=== PATIENT | female | born 1985 | race Caucasian/White ===

== ENCOUNTER 2019-11-22 09:56 | Observation (INO) | payer OTHER, SELFPAY ==
[2019-11-22] VITALS (11 sets, daily range): BP systolic 125–142; BP diastolic 67–98; PULSE 57–85; RESP 15–26; TEMP 36.6–36.7; O2SAT 99–100; BMI 24.1; BMI 24.5
--- NOTE | 2019-11-22 10:13 | EKG12_ITS ---
Test Reason : CP/SOB Blood Pressure : / mmHG Vent. Rate : 069 BPM Atrial Rate : 069 BPM P-R Int : 162 ms QRS Dur : 084 ms QT Int : 382 ms P-R-T Axes : 067 084 026 degrees QTc Int : 409 ms Normal sinus rhythm Nonspecific T wave abnormality Abnormal ECG Confirmed by KIRAN LOZANO ([id number]), health editor KAYLA ARRIAGA ([id number]) on 11/25/2019 9:44:41 AM Referred By: REG/DENISSE Confirmed By:KIRAN LOZANO
--- NOTE | 2019-11-22 10:14 | CT_ITS ---
STUDY: CTA CHEST REASON FOR EXAM: Female, 34 years old. PT STATED SHORT OF BREATH FOR SEVERAL WEEKS RADIATION DOSAGE (If Supplied By Facility): CTDIvol = ( 6.87 ) mGy, DLP = ( 206.74 ) mGycm TECHNIQUE: The examination was performed with the intravenous administration of 75ML ISOVUE 370. Post-processing of the angiographic images was performed, with multiplanar reformation and 3D reconstruction. Individualized dose optimization techniques were used for this CT. COMPARISON: None. FINDINGS: There are nonocclusive intraluminal filling defects in branches of the right lower lobe pulmonary artery in keeping with the pulmonary emboli. Normal thoracic aorta and visualized great vessels. There is no demonstrated aortic dissection. Normal heart and pericardium. Normal mediastinum. Normal hilar regions. Normal visualized trachea and bronchi. The lungs are well expanded. Normal pulmonary parenchyma. Normal pleura. Normal chest wall structures. Normal osseous structures. Normal visualized upper abdomen. CT/CTA Chest W/WO Contrast IMPRESSION: Multiple nonocclusive pulmonary emboli in branches of the right lower lobe pulmonary artery. Electronically Signed: Fransisco Kendall, at 12:00 EST , Service support ,
--- NOTE | 2019-11-22 10:25 | NURSING ---
NO OLD EKGS
[2019-11-22] MEDS: Ipratropium/Albuterol Sulfate 3 ML AMPUL.NEB INHALATION (10:43)
[2019-11-22 10:48] LABS: Absolute Lymphocyte Count 1.84 X10^3/uL (0.83-4.51); Absolute Neutrophil Count 5.7 X10^3/uL (2.0-7.7); Basophil# 0.03 X10^3/uL; Basophil% 0.4 % (0-1); Eosinophil# 0.06 X10^3/uL; Eosinophils% 0.8 % (0-5); Hematocrit 46.1 % (37-47); Hemoglobin 15.5 g/dL (12.0-15.0); Lymphocyte # 1.84 X10^3/ul (4.0); Lymphocyte % 23.1 % (19-41); Mean Corp Hgb Conc 33.6 g/dL (32-36); Mean Corpuscular Hgb 31.1 pg (27.0-32.0); Mean Corpuscular Volume 92.4 fL (81-99); Mean Platelet Vol. 9.8 fl (6.2-12.0); Monocyte# 0.28 X10^3/uL; Monocyte% 3.5 % (0-10); NRBC Flagged by Analyzer 0 % (0-5); Neutrophil # 5.73 X10^3/uL (2.7-7.7); Neutrophil % 71.8 % (47-70); Platelet Count 270 K/mm3 (150-450); RBC Distribution Width CV 11.9 % (11.6-14.6); RBC Distribution Width SD 40.3 fl (35.1-43.9); Red Blood Count 4.99 M/mm3 (4.2-5.4)
--- NOTE | 2019-11-22 10:48 | ED.DCSUM_ITS ---
- ER Visit Summary Date of Service: 11/22/19 Chief Complaint: [Shortness of breath] History of Present Illness: The patient is a 34 F [presents to the ER with complaint shortness of breath for the last 4 days. Patient states that she has been sick for a week and a half. Patient initially started with cough and was seen and admitted at [facility] 4 days ago for the dyspnea. Patient was told her chest x-ray looked clear and she was checked for influenza which was negative. Patient was seen in urgent care 8 days ago and started on Zithromax and prednisone as well as pro-air for suspected bronchitis. She denies recent travel or surgery although she does have family history of DVT and that her sister and brother have had it. She herself is never had history of blood clot. Patient was seen for her follow-up visit today by nurse practitioner and it was noted that with ambulation her pulse ox dropped to 85% on room air and she was referred to the emergency department. She denies any chest pain. She does feel lightheaded with standing and walking. Patient not on any oral contraceptive or hormone replacement. She has had prior hysterectomy.] Physical Examination: [HEENT-PERRLA, EOMI. Cranial nerves II through XII grossly intact. TMs clear. Mucous membranes moist. No adenopathy. Cardiovascular-regular rate and rhythm without murmur or ectopy Lungs-good aeration bilaterally. Patient does have some very fine end expiratory wheezes noted. No accessory muscle use or retractions. Abdomen-normoactive bowel sounds, soft, nontender, no rebound or rigidity, no peritoneal signs. Extremities-intact ?4, normal range of motion, normal pulses, atraumatic] Test Results: [EKG obtained on arrival showed a sinus rhythm with a ventricular rate of 69 bpm with no acute ST segment changes noted.] CBC with differential obtained showed a white count that was normal. Chemistries unremarkable other than a slightly depressed potassium of 3.0. BUN was 14 and creatinine 1.16. Troponin was less than 0.15. CT of the chest showed right lower lobe PEs that are nonocclusive. Emergency Department Course and Treatment: [Patient had clotting profile ordered. Patient was started on Eliquis after discussing with hospitalist.] Treatment Plan: [Admit] Disposition: [Admit] Impression: [Pulmonary emboli Hypoxemia Dyspnea] This note was generated with Dragon dictation software. It may contain incorrect words, spelling, and punctuation that were not noted in review of the chart prior to signing ED Disposition - Plan for ED Patient: Referrals: Katie Watson MD [Primary Care Provider] -
[2019-11-22 11:04] LABS: Anion Gap 9 (5-15); BUN 14 mg/dL (7-18); BUN/Creat Ratio 12.1 RATIO (10-20); Calcium,Total 9.7 mg/dL (8.5-10.1); Chloride 107 mmol/L (98-107); Creatinine, Serum 1.16 mg/dL (0.55-1.02); EST Glomerular Filtration Rate 56 mL/min (>60); Est Glom Filt Rate - Afr Amer 68 mL/min (>60); Estimated Creatinine Clearance 67.63 ml/min; Glucose 103 mg/dL (74-106); Sodium Level 141 mmol/L (136-145)
[2019-11-22] MEDS: 0.9% Normal Saline 1,000 ML 150 ML IV (11:11)
[2019-11-22] MEDS: APIXABAN 5 MG TABLET 10 MG PO ×2 (12:38→22:10)
--- NOTE | 2019-11-22 12:40 | HP.PCM_ITS ---
History of Present Illness Date of Admission: 11/22/19 Chief Complaint: Shortness of breath The patient is a 34 year old F with no significant past medical history presents with shortness of breath. She states that it started a couple of weeks ago and she had been seen at an urgent care where she was started on an albuterol inhaler as well as multiple antibiotics but that did not help. She then went to [facility] where she was admitted and discharged 3 or 4 days later and she was seeing her doctor this morning for post hospital follow-up and had hypoxia with ambulation and therefore she was sent to the ER. She had a CT scan of her chest which demonstrated multiple nonocclusive PEs in the right lower lobe. She does have a family history of DVTs in her brother and sister. She is a smoker but she is not on any control she is status post hysterectomy and she is fairly active so she does not have any signs of provocation other than the smoking. In the ER her lab work was unremarkable, she had a normal heart rate but was little bit tachypneic. She is 100% on room air while sitting. Past Medical History Allergies No Known Allergies Allergy (Verified 11/22/19 09:56) Home Medications: Ambulatory Orders Medication Instructions Recorded NK 11/22/19 Surgical History: hysterectomy Smoking Status: Current every day smoker Tobacco Use: Cigarettes Alcohol: None Drugs: None - *Family History Maternal History Items: Stroke Paternal History Items: Heart Disease Sibling History Items: Clotting Disorder Review of Systems Constitutional: Denies: Chills, Fever, Weight Change HEENT: Denies: Head Aches, Sinus Congestion, Sinus Drainage Cardiovascular: Reports: Chest Pain. Denies: Palpitations Respiratory: Reports: Pleuritic Pain, Shortness of Breath. Denies: Cough, Shortness of breath at rest, Sputum production Gastrointestinal: Denies: Abdominal Pain, Nausea, Vomiting Genitourinary: Denies: Dysuria Musculoskeletal: Denies: Joint Pain, Joint Tenderness Skin: Denies: Rash, Wounds Neurological: Denies: Numbness, Tingling, Focal weakness Psychiatric: Denies: Anxiety, Depression Hematologic/ Lymphatic: Denies: Easy Bruising, Easy Bleeding VTE Information - Inpt Only VTE Present on Admission: No - Physical Exam Vitals/I&O's: Vital Signs Temp Pulse Resp BP Pulse Ox 98.0 F 69 26 H 135/84 H 100 11/22/19 09:57 11/22/19 10:44 11/22/19 10:44 11/22/19 09:57 11/22/19 10:44 Oxygen Delivery Method Room Air Weight: 159 lb Body Mass Index (BMI) 24.1 General: Alert, Oriented x3, Cooperative, No apparent distress HEENT: Atraumatic, PERRLA, EOMI, Normocephalic Oral: Moist Mucosa Neck: Supple, No JVD Lungs: Clear to auscultation, Normal air movement, No rhonchi, No wheeze, No rales, Tachypneic Cardiovascular: Regular rate, Regular Rhythm, Normal S1, Normal S2, No murmurs Abdomen: Soft, Non Tender, Non-Distended, No Hepato-splenomegaly Extremities: No edema, Capillary Refill Less than 3 Seconds Skin: No rashes, No breakdown Neurological: Neuro grossly intact, Sensory exam intact to light touch and pain Psych/Mental Status: Normal Affect, Appropriate Laboratory Results 11/22/19 10:20: WBC 8.0, RBC 4.99, Hgb 15.5 H, Hct 46.1, MCV 92.4, MCH 31.1, MCHC 33.6, RDW Std Deviation 40.3, RDW Coeff of Amanda 11.9, Plt Count 270, MPV 9.8, Immature Gran % (Auto) 0.400, Neut % (Auto) 71.8 H, Lymph % (Auto) 23.1, [place] % (Auto) 3.5, Eos % (Auto) 0.8, Baso % (Auto) 0.4, Absolute Neuts (auto) 5.7, Absolute Lymphs (auto) 1.84, Nucleated RBC % 0 11/22/19 10:20: Sodium 141, Potassium 3.0 L, Chloride 107, Carbon Dioxide 25.0, Anion Gap 9, BUN 14, Creatinine 1.16 H, Estim Creat Clear Calc 67.63, Est GFR (MDRD) Af Amer 68, Est GFR (MDRD) Non-Af 56 L, BUN/Creatinine Ratio 12.1, Glucose 103, Calcium 9.7, Troponin I < 0.015 Current Medications Apixaban (Eliquis) 10 mg PO BID YULI Last Admin: 11/22/19 12:38 Dose: 10 mg Documented by: Sodium Chloride () 1,000 mls @ 150 mls/hr IV .[id number] [facility] Last Admin: 11/22/19 11:11 Dose: 150 mls/hr Documented by: Assessment/Plan 1. Unprovoked PE -He has no tachycardia there is no need for an echocardiogram at this time -We will continue with Eliquis 10 mg p.o. twice daily for a week and then transition to 5 mg p.o. twice daily -We will have her follow-up with a medicine man as an outpatient and at that time they can obtain any genetic information, she does have a brother and a sister who both have DVTs -As she is high risk for recurrence given the likely genetic component and the fact that this was unprovoked, she is a lifelong anticoagulation candidate -Prior to discharge we will obtain an ambulatory pulse ox 2. Tobacco abuse -Advised cessation DVT: Eliquis Code Visit OBSV E&M: 22246 Initial observation care L2
--- NOTE | 2019-11-22 12:55 | NURSING ---
Fallon DUNHAM PE
[2019-11-23 02:46] VITALS: PULSE 62
[2019-11-23 03:30] VITALS: BP 123/74; PULSE 58; RESP 16; TEMP 36.6; O2SAT 98
[2019-11-23 05:09] LABS: Anion Gap 3 (5-15); BUN 9 mg/dL (7-18); BUN/Creat Ratio 9.7 RATIO (10-20); Calcium,Total 8.4 mg/dL (8.5-10.1); Chloride 111 mmol/L (98-107); Creatinine, Serum 0.93 mg/dL (0.55-1.02); EST Glomerular Filtration Rate 72 mL/min (>60); Est Glom Filt Rate - Afr Amer 88 mL/min (>60); Estimated Creatinine Clearance 84.36 ml/min; Glucose 78 mg/dL (74-106); Magnesium 2.3 mg/dL (1.6-2.6); Phosphorus 3.7 mg/dL (2.5-4.9); Potassium 4.2 mmol/L (3.5-5.1); Sodium Level 141 mmol/L (136-145)
[2019-11-23 07:00] VITALS: PULSE 61
[2019-11-23 09:30] VITALS: BP 111/74; PULSE 78; RESP 18; TEMP 36.5; O2SAT 100
--- NOTE | 2019-11-23 09:36 | CASEMGMT ---
Pt to be sent home on Eliquis at discharge and med e-scribed to [facility] retail pharmacy previously. Call to Samy in [facility] pharmacy and she states that pt has no co-pay for med at this time. Pt awaiting discharge. Gio GARCIA CM
--- NOTE | 2019-11-23 10:37 | DCINST_ITS ---
You will use the following diet at home:: Regular Your food should be the consistency of: Regular Your liquids should be the consistency of: Regular/Thin Discharge Activity: Return to Normal Activity Call your doctor if you observe: Fever of 101 or Higher, Shortness of breath, Dizziness, Fainting spells, Swelling in the ankles, Chest pain, Increased palpitations (irregular heartbeat) Allergies/Adverse Reactions: Allergies No Known Allergies Allergy (Verified 11/22/19 09:56) Medications to take at Discharge Apixaban [Eliquis] 10 mg PO BID #90 tab 11/23/19 The following prescriptions were given: Apixaban [Eliquis] 10 mg PO BID #90 tab Transmission Status: Received by [facility] Primary Care Physician: Katie Watson MD [Primary Care Provider] - Please follow up with your Primary Care Physician in: 3-5 days Test Results: Test results from this visit will be discussed in further detail at your follow- up appointment, if applicable. Please Follow Up With: Shahana Oneal MD When: 3-4 weeks
[2019-11-23 11:00] VITALS: PULSE 86
--- NOTE | 2019-11-23 11:01 | PHA.DC.MC ---
Pharmacy Service has performed discharge medication reconciliation and counseling for this patient. 1. APIXABAN 10MG PO BID X 6 MORE DAYS THEN 5MG PO BID The patient's discharge medication list was reviewed for discrepancies and discrepancies were resolved. Home Medications Apixaban [Eliquis] 10 mg PO BID #90 tab 11/23/19 The patient was counseled on the following discharge medications and changes in medications for homegoing were reviewed. The Reason for Use, instructions for use, and potential side effects were reviewed for all new medications. The patient's questions regarding all of their medications were answered. The patient was able to verbally demonstrate an understanding of their discharge medications.
--- NOTE | 2019-11-23 11:20 | PCM.DC.SUM ---
Discharge Date and Diagnosis Date of Admission: 11/22/19 Date of Discharge: 11/23/19 Hospital Course and Treatment Imaging Results: CTA Chest: IMPRESSION: Multiple nonocclusive pulmonary emboli in branches of the right lower lobe pulmonary artery. Consults: None Operations: None Procedures: None Summary of Care Provided: Per HPI: The patient is a 34 year old F with no significant past medical history presents with shortness of breath. She states that it started a couple of weeks ago and she had been seen at an urgent care where she was started on an albuterol inhaler as well as multiple antibiotics but that did not help. She then went to [facility] where she was admitted and discharged 3 or 4 days later and she was seeing her doctor this morning for post hospital follow-up and had hypoxia with ambulation and therefore she was sent to the ER. She had a CT scan of her chest which demonstrated multiple nonocclusive PEs in the right lower lobe. She does have a family history of DVTs in her brother and sister. She is a smoker but she is not on any control she is status post hysterectomy and she is fairly active so she does not have any signs of provocation other than the smoking. In the ER her lab work was unremarkable, she had a normal heart rate but was little bit tachypneic. She is 100% on room air while sitting. Hospital Course: 1. Right lower lobe nonocclusive unprovoked [id number] female with no significant past medical history presents with shortness of breath that was found to be due to a right lower lobe PE. She was not hypoxic on room air at rest, she was not tachycardic she was slightly tachypneic. She was started on Eliquis which she has been tolerating very well and today she says that she feels much better and would like to go home. She still does have a slight cough as well as postnasal drip indicating an upper respiratory infection. She has an albuterol inhaler at home from a previous visit to an urgent care, I recommended Flonase on an outpatient basis to help dry up her nasal mucosa. She is to continue Eliquis 10 mg p.o. twice daily for 7 days and then transition to 5 mg p.o. twice daily. She will need to follow-up with a student success counselor on an outpatient basis for follow-up however given her family history with her both her brother and sister having DVTs there is likely a genetic component and therefore given the high risk of recurrence as well as the unprovoked nature of this PE she is a candidate for lifelong anticoagulation. I discussed the plan of discharge with her and she expressed understanding with the risks and benefits of going home and is in agreement. - Physical Exam Vitals/I&O's: Vital Signs Temp Pulse Resp BP Pulse Ox 97.7 F L 86 18 111/74 100 11/23/19 09:30 11/23/19 11:00 11/23/19 09:30 11/23/19 09:30 11/23/19 09:30 Oxygen Flow Rate (L/min) 2 Oxygen Delivery Method Room Air Weight: 161 lb 6.054 oz Body Mass Index (BMI) 24.5 Intake and Output for Last 24 Hours 11/21/19 11/22/19 11/23/19 23:59 23:59 23:59 Intake Total 2170 / 2170 100 / 100 Balance 2170 / 2170 100 / 100 General: Alert, Oriented x3, Cooperative, No apparent distress HEENT: Atraumatic, PERRLA, EOMI, Normocephalic Oral: Moist Mucosa Neck: Supple, No JVD Lungs: Clear to auscultation, Normal air movement, No rhonchi, No wheeze, No rales, Tachypneic Cardiovascular: Regular rate, Regular Rhythm, Normal S1, Normal S2, No murmurs Abdomen: Soft, Non Tender, Non-Distended, No Hepato-splenomegaly Extremities: No edema, Capillary Refill Less than 3 Seconds Skin: No rashes, No breakdown Neurological: Neuro grossly intact, Sensory exam intact to light touch and pain Psych/Mental Status: Normal Affect, Appropriate Laboratory Results 11/23/19 04:02: Sodium 141, Potassium 4.2, Chloride 111 H, Carbon Dioxide 27.0, Anion Gap 3 L, BUN 9, Creatinine 0.93, Estim Creat Clear Calc 84.36, Est GFR (MDRD) Af Amer 88, Est GFR (MDRD) Non-Af 72, BUN/Creatinine Ratio 9.7 L, Glucose 78, Calcium 8.4 L, Phosphorus 3.7, Magnesium 2.3 Current Medications Acetaminophen (Tylenol) 650 mg PO Q6H PRN PRN PRN Reason: Pain Score 1-10/Temp > 100.7 F Apixaban (Eliquis) 10 mg PO BID YULI Last Admin: 11/22/19 22:10 Dose: 10 mg Documented by: Ondansetron HCl (Zofran) 4 mg IV Q8H PRN PRN PRN Reason: NAUSEA/VOMITING Sodium Chloride () 10 - 40 ml IV UD PRN PRN Reason: SALINE FLUSH Discharge Activity: Return to Normal Activity Call your doctor if you observe: Fever of 101 or Higher, Shortness of breath, Dizziness, Fainting spells, Swelling in the ankles, Chest pain, Increased palpitations (irregular heartbeat) Home Medications: Medications to take at Discharge Apixaban [Eliquis] 10 mg PO BID #90 tab 11/23/19 Following Prescrptions Were Given to Patient: Apixaban [Eliquis] 10 mg PO BID #90 tab Transmission Status: Received by [facility] Primary Care Physician: Katie Watson MD [Primary Care Provider] - Please follow up with your Primary Care Physician in: 3-5 days Please Follow Up With: Shahana Oneal MD When: 3-4 weeks Disposition: Home Minutes spent on discharge:: 35 Patient Condition:: Stable Medical Necessity - Tobacco Use Smoking Status: Current every day smoker Tobacco Use: Cigarettes Meaningful Use Info Meaningful Use Diagnoses (Choose all that apply): None applicable Code Visit OBSV E&M: 41524 Observation care discharge
[2019-11-23 11:51] VITALS: BP 111/74; PULSE 78; RESP 18; TEMP 36.5; O2SAT 100
[2019-11-23] MEDS: APIXABAN 5 MG TABLET 10 MG PO (11:57)
== END 2019-11-23 10:38 | disposition home or self-care (01) ==
LOC: ED 11:36 → PCU 12:47
PROVIDERS: Admitting Provider Family Medicine; Emergency Provider Emergency Medicine; PCP Internal Medicine; Visit Provider Family Medicine
DX: I26.99 Other pulmonary embolism without acute cor pulmonale (principal); F17.210 Nicotine dependence, cigarettes, uncomplicated
CPT/HCPCS: 36415; 71275; 80048; 83735; 84100; 84484; 85025; 93005; 94640; 96360; 96361; 99218; 99284; 99406; J7030; Q9967; G0378

== ENCOUNTER 2019-12-28 19:19 | Observation (INO) | payer OTHER, SELFPAY ==
[2019-11-22 14:09] VITALS: BMI 24.5
[2019-12-28 19:20] VITALS: BP 162/97; PULSE 98; RESP 15; TEMP 36.8; O2SAT 97; BMI 25.1
--- NOTE | 2019-12-28 19:21 | EKG12_ITS ---
Test Reason : CP Blood Pressure : / mmHG Vent. Rate : 093 BPM Atrial Rate : 093 BPM P-R Int : 158 ms QRS Dur : 078 ms QT Int : 314 ms P-R-T Axes : 055 067 011 degrees QTc Int : 390 ms Normal sinus rhythm Possible Left atrial enlargement Septal infarct , age undetermined Abnormal ECG Confirmed by KAYE KAY, ALIDA ([id number]), editor managing newspaper KAYLA ARRIAGA ([id number]) on 12/30/2019 1:02:15 PM Referred By: JUAN Confirmed By:KAVON RESTREPO MD
--- NOTE | 2019-12-28 19:53 | RAD_ITS ---
STUDY: X-RAY CHEST REASON FOR EXAM: Female, 34 years old. CHEST PAIN TECHNIQUE: Frontal view of the chest COMPARISON: 22 November 2019 FINDINGS: The lungs are clear and expanded. There is no demonstrated pleural abnormality. Normal size heart. Normal mediastinum and yadira. Normal visualized pulmonary arteries. Normal visualized aortic arch and descending thoracic aorta. Normal visualized thoracic spine. Normal visualized ribs, clavicles, and shoulders. There is no demonstrated abnormality of the visualized soft tissue structures of the upper abdomen. RAD/Chest 1 View (Portable) IMPRESSION: Normal x-ray examination of the chest. Electronically Signed: Diana Lozano, at 20:17 EDT Tel , Service support ,
[2019-12-28 20:20] VITALS: BP 138/83; PULSE 87; RESP 24; O2SAT 100
[2019-12-28 20:32] LABS: Absolute Lymphocyte Count 0.73 X10^3/uL (0.83-4.51); Absolute Neutrophil Count 10.3 X10^3/uL (2.0-7.7); Basophil# 0.05 X10^3/uL; Basophil% 0.4 % (0-1); Eosinophil# 0.09 X10^3/uL; Eosinophils% 0.8 % (0-5); Hematocrit 41.3 % (37-47); Hemoglobin 13.7 g/dL (12.0-15.0); Lymphocyte # 0.73 X10^3/ul (4.0); Lymphocyte % 6.2 % (19-41); Mean Corp Hgb Conc 33.2 g/dL (32-36); Mean Corpuscular Hgb 31.7 pg (27.0-32.0); Mean Corpuscular Volume 95.6 fL (81-99); Mean Platelet Vol. 9.8 fl (6.2-12.0); Monocyte# 0.61 X10^3/uL; Monocyte% 5.1 % (0-10); NRBC Flagged by Analyzer 0 % (0-5); Neutrophil # 10.33 X10^3/uL (2.7-7.7); Neutrophil % 87.1 % (47-70); Platelet Count 197 K/mm3 (150-450); RBC Distribution Width SD 42.3 fl (35.1-43.9); Red Blood Count 4.32 M/mm3 (4.2-5.4); White Blood Count 11.9 K/mm3 (4.4-11.0)
--- NOTE | 2019-12-28 20:47 | US_ITS ---
STUDY: VENOUS DOPPLER ULTRASOUND - BILATERAL LOWER EXTREMITIES REASON FOR EXAM: Female, 34 years old. KNOWN PEs SOB CHEST PAIN TECHNIQUE: Ultrasound evaluation of the deep vein system to include nava-scale imaging and compression was performed. Nava-scale imaging and Doppler sonographic evaluation, including duplex spectral analysis and qualitative color flow sonography, was performed. COMPARISON: None. FINDINGS: RIGHT LEG Common Femoral Vein: Normal compression, spontaneity and augmentation. Normal color Doppler. Common Femoral Vein/Greater Saphenous Junction: Normal compression. Femoral Proximal: Normal compression. Femoral Middle: Normal compression, spontaneity and augmentation. Normal color Doppler. Femoral Distal: Normal compression. Popliteal Vein: Normal compression, spontaneity and augmentation. Normal color Doppler. Posterior Tibial Vein: Normal compression. Peroneal Vein: Normal compression. LEFT LEG Common Femoral Vein: Normal compression, spontaneity and augmentation. Normal color Doppler. Common Femoral Vein/Greater Saphenous Junction: Normal compression. Femoral Proximal: Normal compression. Femoral Middle: Normal compression, spontaneity and augmentation. Normal color Doppler. Femoral Distal: Normal compression. Popliteal Vein: Normal compression, spontaneity and augmentation. Normal color Doppler. Posterior Tibial Vein: Normal compression. Peroneal Vein: Normal compression. There is no demonstrated deep venous thrombosis. US/Venous Duplex Imag/Steven Extrem IMPRESSION: Normal venous Doppler ultrasound of the bilateral lower extremities. Electronically Signed: Leonard Bhagat, at 21:48 EDT Tel , Service support ,
[2019-12-28 20:50] LABS: Anion Gap 4 (5-15); BUN 7 mg/dL (7-18); BUN/Creat Ratio 7.1 RATIO (10-20); Calcium,Total 8.8 mg/dL (8.5-10.1); Chloride 106 mmol/L (98-107); Creatinine, Serum 0.99 mg/dL (0.55-1.02); EST Glomerular Filtration Rate 67 mL/min (>60); Est Glom Filt Rate - Afr Amer 81 mL/min (>60); Estimated Creatinine Clearance 79.25 ml/min; Glucose 107 mg/dL (74-106); Potassium 3.6 mmol/L (3.5-5.1); Sodium Level 138 mmol/L (136-145)
[2019-12-28 21:20] VITALS: BP 136/95; PULSE 82; RESP 20; O2SAT 99
[2019-12-28 21:37] VITALS: O2SAT 97
[2019-12-28 22:11] VITALS: BP 137/93; PULSE 78; RESP 20; O2SAT 100
--- NOTE | 2019-12-28 22:35 | CT_ITS ---
STUDY: CTA CHEST REASON FOR EXAM: Female, 34 years old. KNOWN PE - ON ELIQUIS, WOKE UP WITH CP TODAY RADIATION DOSAGE (If Supplied By Facility): CTDIvol = ( 8.96 ) mGy, DLP = ( 279.74 ) mGycm TECHNIQUE: The examination was performed with the intravenous administration of IV 100 ML ISOVUE 370. Post-processing of the angiographic images was performed, with multiplanar reformation and 3D reconstruction. Individualized dose optimization techniques were used for this CT. COMPARISON: Portable chest x-ray 12/28/2019. CTA chest 11/22/2019.. FINDINGS: Normal enhancement of the main pulmonary artery and right and left pulmonary arteries. Normal enhancement of the bilateral peripheral pulmonary arteries. There is no demonstrated pulmonary embolism. Previously nonocclusive filling defects within the right inferior pulmonary artery on previous examinations are not visualized. Normal thoracic aorta and visualized great vessels. There is no demonstrated aortic dissection. Normal heart and pericardium. Normal mediastinum. Normal hilar regions. Normal visualized trachea and bronchi. The lungs are well expanded. Normal pulmonary parenchyma. Normal pleura. Normal chest wall structures. Normal osseous structures. Normal visualized upper abdomen. CT/CTA Chest W/WO Contrast IMPRESSION: Normal CTA chest examination, without a demonstrated pulmonary embolism or arterial dissection. Resolution of previous pulmonary emboli in the right lower lobe. Electronically Signed: Willow Rees MD at 23:19 EDT , Service support ,
--- NOTE | 2019-12-28 23:19 | HP.PCM_ITS ---
Problem List (1) Chest pain Status: Acute Qualifiers: Chest pain type: unspecified Qualified Code(s): R07.9 - Chest pain, unspecified (2) Acute viral syndrome Status: Acute (3) Pulmonary emboli Status: Chronic Qualifiers: Pulmonary embolism type: unspecified Chronicity: chronic Acute cor pulmonale presence: unspecified Qualified Code(s): I27.82 - Chronic pulmonary embolism (4) Tobacco use Status: Chronic History of Present Illness Date of Admission: 12/28/19 Chief Complaint: Dyspnea, chest pain The patient is a 34 y/o F w/ PMHx: Tobacco use, Recent history of RLL PE who presents to the [facility] ED on 12/28/19 with history of recent admission on 11/22/2019 with family with history of DVTs in her brothers and sisters with ongoing tobacco use with ongoing history of dyspnea with CTPA at that time demonstrating multiple nonocclusive pulmonary emboli is in the right lower lobe discharged on Eliquis therapy following evaluation with follow-up outpatient with hematology who now represents to the [facility] ED on 12/28/19 with history of improving initially; however, she notes having awoke on day of ED presentation with sudden onset chest pain, described as a midsternal nonradiating pressure, worse with certain positioning, including laying flat with increased dyspnea although dyspnea worse with exertion with no nausea, emesis or diaphoresis, rated 5-6/10 at its worst and 2/10 when it wanes prompting return to the ED for evaluation. With exertion in the ED her oxygenation desaturated into the mid-80s. Patient denies any recent travel or contact with anyone who is traveled to [place] at 19 endemic areas. 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 Work-up in the ED included T 98.3, heart rate 98, BP 162/97 initially with improvement to 136/95, respiratory rate 24, on her percent room air, CBC with WBC 11.9, hemoglobin 13.7, platelet 197 with left shift, BMP with glucose 107 otherwise unremarkable, troponin less than 0.015, x-ray with no acute cardiopulmonary findings, duplex ultrasound with normal venous Doppler ultrasound bilateral lower extremities, CTPA with resolution of previous pulmonary emboli in the right lower lobe, EKG SR without acute evidence of ischemia. Past Medical History Past Medical History (Chronic Problems): Chronic Problems Pulmonary emboli (Chronic) Tobacco use (Chronic) Allergies No Known Allergies Allergy (Verified 12/28/19 19:19) Home Medications: Ambulatory Orders Medication Instructions Recorded Apixaban [Eliquis] 10 mg PO BID #90 tab 11/23/19 Bupropion HCl [Bupropion HCl Sr] 1 tab PO BID 12/28/19 Surgical History: hysterectomy, - - Hysterectomy, knee arthroscopic surgery. Psychiatric History: No pertinent psych hx [employer] History: endometriosis Lives: Spouse/ Significant Other Smoking Status: Light Smoker (<10/day) - Patient currently down to approximately 5 cigarettes/day Tobacco Use: Cigarettes Alcohol: None Drugs: None - *Family History Maternal History Items: Stroke Paternal History Items: Heart Disease Sibling History Items: Clotting Disorder Review of Systems Constitutional: Reports: Malaise, Weakness, Fatigue. Denies: Chills, Fever, Weight Change HEENT: Denies: Head Aches, Sinus Congestion, Sinus Drainage Cardiovascular: Reports: Chest Pain, Chest Pressure, Chest Tightness. Denies: Light Headedness, Orthopnea, Palpitations, Syncope Respiratory: Reports: Shortness of breath upon exertion. Denies: Cough, Shortness of Breath, Shortness of breath at rest, Sputum production Gastrointestinal: Denies: Abdominal Pain, Nausea, Vomiting Genitourinary: Denies: Dysuria Musculoskeletal: Denies: Joint Pain, Joint Tenderness Skin: Denies: Rash, Wounds Neurological: Denies: Numbness, Tingling, Focal weakness Psychiatric: Denies: Anxiety, Depression, Homicidal Ideations, Suicidal Ideations Hematologic/ Lymphatic: Denies: Easy Bruising, Easy Bleeding VTE Information - Inpt Only VTE Present on Admission: No VTE Mechan Device Prophylaxis: SCD's VTE Pharm Prophylaxis ordered?: Yes Patient Problems: Active and Suspected Problems Chest pain (Acute) Acute viral syndrome (Acute) Subjective: Seated upright in the bed, fatigued appearance, notes ongoing chest discomfort although currently waned. Objective: Physical Examination: General: awake, alert, oriented x 3 and cooperative, seated upright in the ED bed, mildly uncomfortable appearing. Skin: normal color, turgor, no icterus, cyanosis. HEENT: AT/NC, EOMI, PERRLA, mildly dry MM, no carotid bruits or JVD noted. Lungs: CTA bilaterally, moderate effort, moderate decrease BL bases, no rales, ronchi or wheezing. Heart: Mildly tachycardic with regular rhythm; no gallop, rub audible. Abdomen: soft, NTTP, ND, normal BS, no HSM. Extremities: no cyanosis, clubbing, or edema. Neurological: patient awake, alert, oriented x 3; cognitive function appears baseline intact; pupils equally reactive to light and accomodation; cranial nerves II-XII grossly normal, moving all 4 extremities, no focal deficits, strength moderately global decrease secondary to acute presentation. Psychiatric: affect appears fatigued and uncomfortable, no acute evidence of depressive or anxiety feelings. - Physical Exam Vitals/I&O's: Vital Signs Temp Pulse Resp BP Pulse Ox 98.3 F 78 20 H 137/93 H 100 12/28/19 19:20 12/28/19 22:11 12/28/19 22:11 12/28/19 22:11 12/28/19 22:11 Oxygen Delivery Method Room Air Weight: 165 lb 5.547 oz Body Mass Index (BMI) 25.1 Laboratory Results 12/28/19 20:20: WBC 11.9 H, RBC 4.32, Hgb 13.7, Hct 41.3, MCV 95.6, MCH 31.7, MCHC 33.2, RDW Std Deviation 42.3, RDW Coeff of Amanda 12.0, Plt Count 197, MPV 9.8, Immature Gran % (Auto) 0.400, Neut % (Auto) 87.1 H, Lymph % (Auto) 6.2 L, Nolan % (Auto) 5.1, Eos % (Auto) 0.8, Baso % (Auto) 0.4, Absolute Neuts (auto) 10.3 H, Absolute Lymphs (auto) 0.73 L, Nucleated RBC % 0 12/28/19 20:20: Sodium 138, Potassium 3.6, Chloride 106, Carbon Dioxide 28.0, A nion Gap 4 L, BUN 7, Creatinine 0.99, Estim Creat Clear Calc 79.25, Est GFR (MDRD) Af Amer 81, Est GFR (MDRD) Non-Af 67, BUN/Creatinine Ratio 7.1 L, Glucose 107 H, Calcium 8.8, Troponin I < 0.015 Assessment/Plan All Active Problems Chest pain (Acute) Acute viral syndrome (Acute) The patient is a 34 y/o F w/ PMHx: Tobacco use, Recent history of RLL PE 11/22/19 who now re-presents to the [facility] ED on 12/28/19 with sudden onset chest pain, described as a midsternal nonradiating pressure, worse with certain positioning, including laying flat with increased dyspnea although dyspnea worse with exertion. 1. Chest Pain, dyspnea, unclear etiology, possibly pericarditis associated with viral illness as febrile upon ED presentation: EKG in ED sinus rhythm with no acute evidence of ischemia but nonspecific ST-T wave changes, CXR w/ no acute findings, CTPA with no new pulmonary emboli, improvement of the right lower lobe, initial trop normal x1. Will admit to PCU, place on a monitored bed to assure no acute myocardial infarction with serial cardiac enzymes and EKGs, will obtain ESR and CRP as concern for underlying pericarditis, will obtain respiratory viral panel, obtain echocardiogram. Pending these findings may initiate alternate regimen or further evaluation as needed. ASA, NG, morphine. 2. Recent right lower lobe pulmonary embolism with history of frequent DVTs in her siblings: Suspected underlying coagulopathy, strongly encouraged tobacco cessation, continued on Eliquis therapy, repeat CTPA with no new findings and improvement from prior, encouraged continued follow-up with hematology outpatient. 3. Tobacco Abuse: Encouraged cessation, inpatient consultation per RT, NR if desired. 4. DVT prophylaxis: SCDs, continue home Eliquis. OBSV E&M: 48889 Initial observation care L3
[2019-12-28] MEDS: APIXABAN 5 MG TABLET PO (23:44)
[2019-12-28 23:46] VITALS: BP 121/91; PULSE 110; PULSE 96; RESP 18; RESP 27; TEMP 38.4; O2SAT 100; O2SAT 99
[2019-12-29] VITALS (13 sets, daily range): BP systolic 108–124; BP diastolic 65–86; PULSE 68–97; RESP 16–20; TEMP 36.7–37.6; O2SAT 96–100; BMI 25.5; BMI 25.6
--- NOTE | 2019-12-29 00:30 | ED.RN ---
Patient has 3 SIRS upon sending patient to the floor. I discussed this with Dr. Jean Baptiste and he does not believe the patient is SEPTIC. There is not any known source or organ disfunction.
--- NOTE | 2019-12-29 00:33 | ED.VISSUMM ---
- ER Visit Summary Date of Service: 12/29/19 Chief Complaint: Chest pain History of Present Illness: The patient is a [address] Watson. Patient was diagnosed with a PE on the right last month. She has been taking Eliquis. Her last dose was 3 hours ago. She reports that 630 this morning she woke with substernal chest pressure that is been constant all day. 710 currently and at worst. States this seems to be worsened by laying flat and relieved by sitting up. Denies any nausea, vomiting, diaphoresis. She reports that she is lightheaded and this gets worse with standing. She is very short of breath when she ambulates. States this is similar to when she had a PE. Physical Examination: Vitals: Stable. Afebrile. General: Well-nourished and well-developed. Head: Normocephalic atraumatic. Neck: Supple, no lymphadenopathy. No JVD. Nontender. Cardiovascular: Regular rate and rhythm. No murmurs. Respiratory: No respiratory distress. Clear to auscultation bilaterally. Abdominal: Soft, nontender, nondistended, normal bowel sounds. No guarding, rebound, or peritoneal signs. Back: Nontender. Extremities: Nontender, no edema. Skin: Normal color, no rash. Neurologic: Alert and oriented ?3. Cranial nerves II through XII are intact. Normal strength and sensation. Psych: Normal affect. Test Results: EKG is sinus at [address] changes. Troponin is negative. Chem-7 shows a glucose 107. CBC shows white count 11.9 with segs neutrophils 87 lymphocytes of 6. Clinical Impression(s) from Imaging Studies Chest X-Ray 12/28/19 19:53 IMPRESSION: Normal x-ray examination of the chest. Electronically Signed: Diana Lozano, at 20:17 EDT Tel , Service support , Venous Duplex 12/28/19 20:47 IMPRESSION: Normal venous Doppler ultrasound of the bilateral lower extremities. Electronically Signed: Leonard Bhagat, at 21:48 EDT Tel , Service support , Chest CTA 12/28/19 22:35 IMPRESSION: Normal CTA chest examination, without a demonstrated pulmonary embolism or arterial dissection. Resolution of previous pulmonary emboli in the right lower lobe. Electronically Signed: Willow Rees MD at 23:19 EDT , Service support , Emergency Department Course and Treatment: Patient refused pain medications. She is resting comfortably. Initially I was not going to repeat the CT of her chest. Everything other than the CTA returned and was negative. Patient stated that she still felt short of breath. I had her ambulate with the pulse ox on her pulse ox dropped into the mid 80s. Because of this repeat CT of the chest was obtained. This is negative. At this point I do not have an explanation for why the patient is hypoxic with ambulation. Treatment Plan: Patient was discussed with Dr. Alvarado. She will be admitted to the hospital for further evaluation and treatment. Disposition: Admitted in stable condition. Impression: 1. Chest pain. 2. Hypoxia. This note was generated with [employer] software. It may contain incorrect words, spelling, and punctuation that were not noted in review of the chart prior to signing
[2019-12-29 00:47] LABS: Erythrocyte Sedimentation Rate 7 mm/hr (0-20)
--- NOTE | 2019-12-29 01:28 | EKG12_ITS ---
Test Reason : CP ADMISSION Blood Pressure : / mmHG Vent. Rate : 089 BPM Atrial Rate : 089 BPM P-R Int : 166 ms QRS Dur : 088 ms QT Int : 350 ms P-R-T Axes : 061 081 021 degrees QTc Int : 425 ms Normal sinus rhythm T wave abnormality, consider inferior ischemia Abnormal ECG When compared with ECG of 22-NOV-2019 10:09, No significant change was found Confirmed by GIOVANNI KAY, ZHANNA ([id number]), editor magazine KAYLA ARRIAGA ([id number]) on 01/03/2020 7:51:46 AM Referred By: DR FOSTER Confirmed By:ZHANNA DAVILA MD
--- NOTE | 2019-12-29 01:28 | ECHOD_ITS ---
Reason For Study: DYSPNEA/SOB Procedure This was a 2D Doppler, Color Flow transthoracic echocardiogram. Exam performed portable in patient room. Left Ventricle Normal LV size. The estimated ejection fraction is 65 %. No evidence for diastolic dysfunction. No regional wall motion abnormalities noted. Right Ventricle Normal RV size. Normal systolic function. Atria Normal left atrium. Normal right atrium. No doppler evidence for ASD. Mitral Valve There is no mitral valve stenosis. No mitral valve insufficiency. Tricuspid Valve There is no tricuspid stenosis. Trivial tricuspid valve insufficiency. Unable to estimate RV systolic pressure due to insufficient tricuspid regurgitant envelope. Aortic Valve Trisinus/trileaflet aortic valve. There is no aortic stenosis. No aortic valve insufficiency. Pulmonic Valve There is no pulmonic valvular stenosis. No pulmonic valve insufficiency. Great Vessels Normal aortic root. Pericardium/Pleural No pericardial effusion. MMode/2D Measurements & Calculations LVIDd: 5.0 cm IVSd: 0.95 cm Ao root diam: 3.1 cm LVIDs: 3.3 cm LVPWd: 0.89 cm RVDd: 2.9 cm FS: 34.0 % LAV(MOD-bp): 44.1 ml LA A4 area: 17.1 cm2 LA dimension(2D): 3.2 cm LAV(MOD-bp) Indexed: 23.4 ml/m2 LAV(MOD-sp2): 44.2 ml LAV(MOD-sp4): 44.1 ml RA A4 area: 15.7 cm2 Time Measurements MV dec time: 0.19 sec Doppler Measurements & Calculations MV E max malick: 79.7 cm/sec Lat Peak E' Malick: 13.1 cm/sec Med Peak E' Malick: 12.0 cm/sec MV A max malick: 57.8 cm/sec E/E' lat: 6.1 E/E' med: 6.7 MV E/A: 1.4 Ao V2 max: 170.8 cm/sec LV V1 max: 122.0 cm/sec PA V2 max: 102.5 cm/sec Ao max P.7 mmHg LV V1 max P.0 mmHg Ao V2 mean: 125.5 cm/sec LV V1 mean P.6 mmHg Ao mean P.9 mmHg LV V1 mean: 91.4 cm/sec Ao V2 VTI: 31.5 cm LV V1 VTI: 21.2 cm TR max malick: 247.0 cm/sec TR max P.4 mmHg Interpretation Summary The estimated ejection fraction is 65 %. No evidence for diastolic dysfunction. Trivial tricuspid valve insufficiency. Ordering Physician: Shelia Alvaardo Referring Physician: Katie Watson Performed By: Mariluz Avila RDCS, RVT
[2019-12-29] MEDS: Acetaminophen 325 MG Tablet 650 MG PO (01:48)
[2019-12-29] MEDS: 0.9% Normal Saline 1,000 ML 125 ML IV (01:52)
[2019-12-29] MEDS: 0.9% Saline Lock 10 ML Syringe IV (01:53)
[2019-12-29] MEDS: CLARIFY ORDER 1 EACH NOTE (03:39)
[2019-12-29 04:59] LABS: CRP 5.58 mg/L (0.0-3.0)
[2019-12-29 06:46] LABS: Absolute Neutrophil Count 5.1 X10^3/uL (2.0-7.7); Basophil# 0.04 X10^3/uL; Basophil% 0.6 % (0-1); Eosinophil# 0.06 X10^3/uL; Eosinophils% 0.9 % (0-5); Hematocrit 37.7 % (37-47); Hemoglobin 12.7 g/dL (12.0-15.0); Lymphocyte % 13.8 % (19-41); Mean Corp Hgb Conc 33.7 g/dL (32-36); Mean Corpuscular Hgb 31.8 pg (27.0-32.0); Mean Corpuscular Volume 94.5 fL (81-99); Mean Platelet Vol. 10.2 fl (6.2-12.0); Monocyte# 0.38 X10^3/uL; Monocyte% 5.8 % (0-10); NRBC Flagged by Analyzer 0 % (0-5); Neutrophil # 5.14 X10^3/uL (2.7-7.7); Neutrophil % 78.6 % (47-70); Platelet Count 170 K/mm3 (150-450); RBC Distribution Width CV 11.9 % (11.6-14.6); RBC Distribution Width SD 41.2 fl (35.1-43.9); Red Blood Count 3.99 M/mm3 (4.2-5.4); White Blood Count 6.5 K/mm3 (4.4-11.0)
[2019-12-29 07:10] LABS: Anion Gap 7 (5-15); BUN 5 mg/dL (7-18); Calcium,Total 8.3 mg/dL (8.5-10.1); Chloride 111 mmol/L (98-107); Creatinine, Serum 0.83 mg/dL (0.55-1.02); EST Glomerular Filtration Rate 82 mL/min (>60); Est Glom Filt Rate - Afr Amer 100 mL/min (>60); Estimated Creatinine Clearance 91.12 ml/min; Glucose 89 mg/dL (74-106); Potassium 3.6 mmol/L (3.5-5.1); Sodium Level 142 mmol/L (136-145)
[2019-12-29] MEDS: APIXABAN 5 MG TABLET PO ×2 (09:36→21:56)
[2019-12-29] MEDS: Aspirin E.C. 81 MG Tablet PO (09:36)
[2019-12-29] MEDS: Famotidine 20 MG Tablet PO ×2 (09:37→21:55)
[2019-12-29] MEDS: buPROPion (SR) 150 MG Tablet.SA PO ×2 (09:37→21:56)
--- NOTE | 2019-12-29 15:25 | PN_ITS ---
Patient Problems: Active and Suspected Problems Chest pain (Acute) Acute viral syndrome (Acute) Subjective: Patient seen and examined. She was admitted with a complaint of acute onset shortness of breath and chest pain. She has a history of PE, nad was recently admitted on 11/22/2019 to [facility] and diagnosed with multiple nonocclusive PE in right lower lobe; She was discharged home on eliquis. She presented this time with sudden onset chest pain and dyspnea worsened with laying down flat. She is being managed for chest pain of unclear etiology. Patient still complains of mild chest pain, though it is better, and she still feels short of breath. She says pain is worse with lying down and relieved by sitting up. She denies any cough, nausea or vomiting. Review of systems is otherwise negative. Labs and vitals reviewed. Vitals/I&O's: Vital Signs Temp Pulse Resp BP Pulse Ox 98.0 F 77 18 120/78 100 12/29/19 14:58 12/29/19 15:00 12/29/19 14:58 12/29/19 14:58 12/29/19 14:58 Oxygen Flow Rate (L/min) 2 Oxygen Delivery Method Room Air Weight: 163 lb 2.273 oz Body Mass Index (BMI) 25.5 Intake and Output for Last 24 Hours 12/27/19 12/28/19 12/29/19 23:59 23:59 23:59 Intake Total 1208.75 / 1208.75 Balance 1208.75 / 1208.75 General: Alert, Oriented x3, Cooperative, No apparent distress HEENT: Atraumatic, PERRLA, EOMI, Normocephalic Oral: Dry Mucosa Neck: Supple, No JVD, Negative Carotid Bruits Lungs: Clear to auscultation, Normal air movement, No rhonchi, No wheeze, No rales, - - on 2L of oxygen at time of review Cardiovascular: Regular rate, Regular Rhythm, Normal S1, Normal S2, No murmurs Abdomen: Bowel Sounds Present, Soft, Non Tender, Non-Distended, No Hepato- splenomegaly Extremities: No clubbing, No cyanosis, No edema, Capillary Refill Less than 3 Seconds Skin: No rashes, No breakdown Musculoskeletal: No Tenderness to Palpation of Joints or Extremities Lymphatic: No Cervical, Supraclavicular, or Inguinal Adenopathy Neurological: Cranial nerves II-XII grossly intact, Neuro grossly intact, Motor Exam 5/5 strength throughout Psych/Mental Status: Normal Affect, Appropriate, Alert and oriented to time, place, person, mood and affect Microbiology Past 72 Hours 12/28/19 23:58 Mucosa - Nasopharyngeal Respiratory Panel (PCR) - Final Laboratory Results 12/28/19 20:20: WBC 11.9 H, RBC 4.32, Hgb 13.7, Hct 41.3, MCV 95.6, MCH 31.7, MCHC 33.2, RDW Std Deviation 42.3, RDW Coeff of Amanda 12.0, Plt Count 197, MPV 9.8, Immature Gran % (Auto) 0.400, Neut % (Auto) 87.1 H, Lymph % (Auto) 6.2 L, [place] % (Auto) 5.1, Eos % (Auto) 0.8, Baso % (Auto) 0.4, Absolute Neuts (auto) 10.3 H, Absolute Lymphs (auto) 0.73 L, Nucleated RBC % 0 12/28/19 20:20: Sodium 138, Potassium 3.6, Chloride 106, Carbon Dioxide 28.0, Anion Gap 4 L, BUN 7, Creatinine 0.99, Estim Creat Clear Calc 79.25, Est GFR (MDRD) Af Amer 81, Est GFR (MDRD) Non-Af 67, BUN/Creatinine Ratio 7.1 L, Glucose 107 H, Calcium 8.8, Troponin I < 0.015 12/28/19 20:20: ESR 7 12/28/19 20:20: Magnesium 2.0, C-React Prot Ext Range 5.58 H 12/29/19 03:24: Troponin I < 0.015 12/29/19 06:08: WBC 6.5, RBC 3.99 L, Hgb 12.7, Hct 37.7, MCV 94.5, MCH 31.8, MCHC 33.7, RDW Std Deviation 41.2, RDW Coeff of Amanda 11.9, Plt Count 170, MPV 10.2, Immature Gran % (Auto) 0.300, Neut % (Auto) 78.6 H, Lymph % (Auto) 13.8 L, [place] % (Auto) 5.8, Eos % (Auto) 0.9, Baso % (Auto) 0.6, Absolute Neuts (auto) 5.1, Absolute Lymphs (auto) 0.90, Nucleated RBC % 0 12/29/19 06:08: Sodium 142, Potassium 3.6, Chloride 111 H, Carbon Dioxide 24.0, Anion Gap 7, BUN 5 L, Creatinine 0.83, Estim Creat Clear Calc 91.12, Est GFR (MDRD) Af Amer 100, Est GFR (MDRD) Non-Af 82, BUN/Creatinine Ratio 6.0 L, Glucose 89, Calcium 8.3 L, Troponin I < 0.015 12/29/19 09:03: Troponin I < 0.015 Diagnostic Data Chest X-Ray 12/28/19 19:53 IMPRESSION: Normal x-ray examination of the chest. Electronically Signed: Diana Lozano, at 20:17 EDT Tel , Service support , Venous Duplex 12/28/19 20:47 IMPRESSION: Normal venous Doppler ultrasound of the bilateral lower extremities. Electronically Signed: Leonard Bhagat, at 21:48 EDT Tel , Service support , Chest CTA 12/28/19 22:35 IMPRESSION: Normal CTA chest examination, without a demonstrated pulmonary embolism or arterial dissection. Resolution of previous pulmonary emboli in the right lower lobe. Electronically Signed: Willow Rees MD at 23:19 EDT , Service support , Current Medications Acetaminophen (Tylenol) 650 mg PO Q6H PRN PRN PRN Reason: Pain Score 1-10/Temp > 100.7 F Last Admin: 12/29/19 01:48 Dose: 650 mg Documented by: Al Hydroxide/Mg Hydroxide (Mylanta Ii) 30 ml PO Q6H PRN PRN PRN Reason: Gastric Burning Albuterol Sulfate (Ventolin Aerosols) 2.5 mg INHALATION Q2H PRN PRN PRN Reason: SOB/Wheezing Apixaban (Eliquis) 5 mg PO BID YULI Last Admin: 12/29/19 09:36 Dose: 5 mg Documented by: Aspirin (Ecotrin) 81 mg PO DAILY@0800 [facility] Last Admin: 12/29/19 09:36 Dose: 81 mg Documented by: Bupropion HCl (Wellbutrin Sr (150mg Tablets)) 150 mg PO BID [facility] Last Admin: 12/29/19 09:37 Dose: 150 mg Documented by: Famotidine (Pepcid) 20 mg PO BID [facility] Last Admin: 12/29/19 09:37 Dose: 20 mg Documented by: Glucagon () 1 mg IM .X1 PRN PRN Reason: Hypoglycemia Guaifenesin (Robitussin) 20 ml PO Q4H PRN PRN PRN Reason: COUGH Sodium Chloride () 250 mls @ 15 mls/hr IV .[id number] PRN PRN Reason: Saline Flush Dextrose (Dextrose 10%-Water) 250 mls @ 999 mls/hr IV .Q16M PRN; Protocol PRN Reason: HYPOGLYCEMIA Magnesium Hydroxide (Milk Of Magnesia) 30 ml PO DAILY PRN PRN PRN Reason: Constipation Morphine Sulfate () 4 mg IV Q3H PRN PRN PRN Reason: Pain Score 6-10/10 Nitroglycerin (Nitrostat) 0.4 mg SUBLINGUAL Q5M PRN PRN Reason: CARDIAC/CHEST PAIN Ondansetron HCl (Zofran) 4 mg IV Q8H PRN PRN PRN Reason: NAUSEA/VOMITING Oxycodone HCl (Oxyir) 5 mg PO Q4H PRN PRN PRN Reason: Pain Score 4-5/10 Prochlorperazine Edisylate (Compazine Iv) 5 mg IV Q4H PRN PRN PRN Reason: Breakthrough Nausea/Vomiting Psyllium Hydrophilic Mucilloid (Metamucil) 1 packet PO DAILY PRN PRN PRN Reason: Constipation Senna/Docusate Sodium (Senokot-S, Tracey-Colace) 2 tablet PO BID PRN PRN PRN Reason: Constipation Sodium Chloride () 10 - 40 ml IV UD PRN PRN Reason: SALINE FLUSH Last Admin: 12/29/19 01:53 Dose: 10 ml Documented by: Temazepam (Restoril) 15 mg PO QHS PRN PRN PRN Reason: INSOMNIA Throat Lozenges (Cepacol Sore Throat Lozenge) 1 lozenge MUCOUS MEM Q2H PRN PRN PRN Reason: SORE THROAT STROKE Vital Signs/Narrative: Vital Signs Temp Pulse Resp BP Pulse Ox 12/29/19 15:00 77 12/29/19 14:58 98.0 F 68 18 120/78 100 Medical Necessity - Tobacco Use Smoking Status: Light Smoker (<10/day) Tobacco Use: Cigarettes Assessment/Plan All Active Problems Chest pain (Acute) Acute viral syndrome (Acute) 1. Chest pain of unclear etiology * pericarditis is a possibility. CRP was elevated, but ESR is normal * troponins x 3 were negative * 2D echo:EF of 65%, with no evidence of diastolic dysfunction and trivial tricuspid valve insufficiency * will start on ibuprofen, with PPI * 2. History of recent PE: * does have a strong history of PE and DVT in her siblings; likely has an underlying coagulopathy. * On eliquis. Repeat CTA during this admission negative for PE. * DVT prophylaxis: not indicated as patient is being anticoagulated. OBSV E&M: 42119 Subsequent observation care L2
[2019-12-30 02:59] VITALS: PULSE 76
[2019-12-30 04:00] VITALS: BP 125/79; PULSE 67; RESP 17; TEMP 36.6; O2SAT 98
[2019-12-30] MEDS: Ibuprofen 600 MG Tablet PO ×2 (05:37→12:28)
[2019-12-30 06:46] VITALS: PULSE 62
[2019-12-30 07:12] LABS: Absolute Lymphocyte Count 0.94 X10^3/uL (0.83-4.51); Absolute Neutrophil Count 1.9 X10^3/uL (2.0-7.7); Basophil# 0.02 X10^3/uL; Basophil% 0.6 % (0-1); Eosinophil# 0.13 X10^3/uL; Eosinophils% 3.7 % (0-5); Hematocrit 37.9 % (37-47); Hemoglobin 12.1 g/dL (12.0-15.0); Lymphocyte # 0.94 X10^3/ul (4.0); Lymphocyte % 26.4 % (19-41); Mean Corp Hgb Conc 31.9 g/dL (32-36); Mean Corpuscular Hgb 30.9 pg (27.0-32.0); Mean Corpuscular Volume 96.9 fL (81-99); Monocyte# 0.58 X10^3/uL; Monocyte% 16.3 % (0-10); NRBC Flagged by Analyzer 0 % (0-5); Neutrophil # 1.89 X10^3/uL (2.7-7.7); Platelet Count 163 K/mm3 (150-450); RBC Distribution Width CV 12.3 % (11.6-14.6); RBC Distribution Width SD 43.8 fl (35.1-43.9); Red Blood Count 3.91 M/mm3 (4.2-5.4); White Blood Count 3.6 K/mm3 (4.4-11.0)
[2019-12-30 07:44] LABS: Anion Gap 5 (5-15); BUN 5 mg/dL (7-18); Calcium,Total 8.5 mg/dL (8.5-10.1); Chloride 114 mmol/L (98-107); Creatinine, Serum 0.84 mg/dL (0.55-1.02); EST Glomerular Filtration Rate 82 mL/min (>60); Est Glom Filt Rate - Afr Amer 99 mL/min (>60); Estimated Creatinine Clearance 90.04 ml/min; Glucose 84 mg/dL (74-106); Potassium 3.9 mmol/L (3.5-5.1); Sodium Level 141 mmol/L (136-145)
[2019-12-30 08:00] VITALS: O2SAT 98
[2019-12-30 09:04] VITALS: BP 120/75; PULSE 73; RESP 16; TEMP 36.6; O2SAT 100
[2019-12-30] MEDS: Famotidine 20 MG Tablet PO (09:05)
[2019-12-30] MEDS: APIXABAN 5 MG TABLET PO (09:05)
[2019-12-30] MEDS: Pantoprazole Sodium 40 MG Tablet PO (09:06)
[2019-12-30] MEDS: buPROPion (SR) 150 MG Tablet.SA PO (09:06)
[2019-12-30 11:09] VITALS: PULSE 74
--- NOTE | 2019-12-30 11:55 | PCM.DC ---
- Discharge Diagnoses Current Active Problems: Current Active and Chronic Problems Chest pain (Acute) Acute viral syndrome (Acute) Pulmonary emboli (Chronic) Tobacco use (Chronic) You will use the following diet at home:: Regular Your food should be the consistency of: Regular Your liquids should be the consistency of: Regular/Thin Discharge Activity: Return to Normal Activity Call your doctor if you observe: Fever of 101 or Higher, Shortness of breath, Dizziness, Fainting spells, Swelling in the ankles, Chest pain, Increased palpitations (irregular heartbeat) Allergies/Adverse Reactions: Allergies No Known Allergies Allergy (Verified 12/28/19 19:19) Medications to take at Discharge Apixaban [Eliquis] 10 mg PO BID #90 tab 11/23/19 Bupropion HCl [Bupropion HCl Sr] 1 tab PO BID 12/28/19 Ibuprofen [Motrin] 600 mg PO Q8 #0 tab 12/30/19 Pantoprazole Sodium [Protonix] 40 mg PO DAILY #30 tab 12/30/19 The following prescriptions were given: Pantoprazole Sodium [Protonix] 40 mg PO DAILY #30 tab Transmission Status: Pending to [facility] Primary Care Physician: Katie Watson MD [Primary Care Provider] - Please follow up with your Primary Care Physician in: 3-5 days Test Results: Test results from this visit will be discussed in further detail at your follow-up appointment, if applicable.
--- NOTE | 2019-12-30 15:27 | PCM.DC.SUM ---
Discharge Date and Diagnosis Date of Admission: 12/28/19 Date of Discharge: 12/30/19 - Secondary Discharge Diagnosis Chronic Problems Pulmonary emboli (Chronic) Tobacco use (Chronic) Hospital Course and Treatment Imaging Results: CXR: IMPRESSION: Normal x-ray examination of the chest. Venous Doppler: IMPRESSION: Normal venous Doppler ultrasound of the bilateral lower extremities. CTA Chest: IMPRESSION: Normal CTA chest examination, without a demonstrated pulmonary embolism or arterial dissection. Resolution of previous pulmonary emboli in the right lower lobe. Echo: Interpretation Summary The estimated ejection fraction is 65 %. No evidence for diastolic dysfunction. Trivial tricuspid valve insufficiency. Operations: None Procedures: 2-D Echocardiogram Summary of Care Provided: Per HPI: The patient is a 34 y/o F w/ PMHx: Tobacco use, Recent history of RLL PE who presents to the [facility] ED on 12/28/19 with history of recent admission on 11/22/2019 with family with history of DVTs in her brothers and sisters with ongoing tobacco use with ongoing history of dyspnea with CTPA at that time demonstrating multiple nonocclusive pulmonary emboli is in the right lower lobe discharged on Eliquis therapy following evaluation with follow-up outpatient with hematology who now represents to the [facility] ED on 12/28/19 with history of improving initially; however, she notes having awoke on day of ED presentation with sudden onset chest pain, described as a midsternal nonradiating pressure, worse with certain positioning, including laying flat with increased dyspnea although dyspnea worse with exertion with no nausea, emesis or diaphoresis, rated 5-6/10 at its worst and 2/10 when it wanes prompting return to the ED for evaluation. With exertion in the ED her oxygenation desaturated into the mid-80s. Patient denies any recent travel or contact with anyone who is traveled to [place] endemic areas. 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 Work-up in the ED included T 98.3, heart rate 98, BP 162/97 initially with improvement to 136/95, respiratory rate 24, on her percent room air, CBC with WBC 11.9, hemoglobin 13.7, platelet 197 with left shift, BMP with glucose 107 otherwise unremarkable, troponin less than 0.015, x-ray with no acute cardiopulmonary findings, duplex ultrasound with normal venous Doppler ultrasound bilateral lower extremities, CTPA with resolution of previous pulmonary emboli in the right lower lobe, EKG SR without acute evidence of ischemia. Hospital Course: 1. Chest yeah-[id number]-old female who is been recently diagnosed with PE and started on Eliquis presents with chest pain. As well as significantly elevated blood pressure she is feeling much better now and has no further chest tightness and her blood pressure is back to normal with no major treatment. Echo was unremarkable and she had 3 troponins which were negative. CTA of her chest was also negative as was a venous Doppler of her lower extremities. There was history of her feeling better when leaning forward and worse when laying back, therefore it was felt that she could be a pericarditis and was started on ibuprofen. I did discuss with her the risk of bleeding with using ibuprofen and Eliquis, she is placed on Protonix and she will taper her ibuprofen over the course of the month continue with Protonix until then. She will follow-up with her primary care doctor in 3 to 5 days for further evaluation. I did explain to her that she does not use any bleeding that she is to return to the hospital and stop her ibuprofen and Eliquis. She expressed understanding of the risk and benefits of discharge and is okay with going home today. 2. Her other medical diagnoses were evaluated and her home medications were continued where appropriate - Physical Exam Vitals/I&O's: Vital Signs Temp Pulse Resp BP Pulse Ox 97.8 F 74 16 120/75 100 12/30/19 09:04 12/30/19 11:09 12/30/19 09:04 12/30/19 09:04 12/30/19 09:04 Oxygen Flow Rate (L/min) 2 Oxygen Delivery Method Room Air Weight: 163 lb 2.273 oz Body Mass Index (BMI) 25.5 Intake and Output for Last 24 Hours 12/28/19 12/29/19 12/30/19 23:59 23:59 23:59 Intake Total 1768.75 / 1768.75 460 / 460 Balance 1768.75 / 1768.75 460 / 460 General: Alert, Oriented x3, Cooperative, No apparent distress HEENT: Atraumatic, PERRLA, EOMI, Normocephalic Oral: Moist Mucosa Neck: Supple, No JVD Lungs: Clear to auscultation, Normal air movement, No rhonchi, No wheeze, No rales Cardiovascular: Regular rate, Regular Rhythm, Normal S1, Normal S2, No murmurs Abdomen: Soft, Non Tender, Non-Distended, No Hepato-splenomegaly Extremities: No edema, Capillary Refill Less than 3 Seconds Skin: No rashes, No breakdown Neurological: Neuro grossly intact, Sensory exam intact to light touch and pain Psych/Mental Status: Normal Affect, Appropriate Microbiology Past 72 Hours 12/28/19 23:58 Mucosa - Nasopharyngeal Respiratory Panel (PCR) - Final Laboratory Results 12/30/19 06:44: WBC 3.6 L, RBC 3.91 L, Hgb 12.1, Hct 37.9, MCV 96.9, MCH 30.9, MCHC 31.9 L D, RDW Std Deviation 43.8, RDW Coeff of Amanda 12.3, Plt Count 163, MPV 10.0, Immature Gran % (Auto) 0.000, Neut % (Auto) 53.0, Lymph % (Auto) 26.4, [place] % (Auto) 16.3 H, Eos % (Auto) 3.7, Baso % (Auto) 0.6, Absolute Neuts (auto) 1.9 L, Absolute Lymphs (auto) 0.94, Nucleated RBC % 0 12/30/19 06:44: Sodium 141, Potassium 3.9, Chloride 114 H, Carbon Dioxide 22.0, Anion Gap 5, BUN 5 L, Creatinine 0.84, Estim Creat Clear Calc 90.04, Est GFR (MDRD) Af Amer 99, Est GFR (MDRD) Non-Af 82, BUN/Creatinine Ratio 6.0 L, Glucose 84, Calcium 8.5 Discharge Activity: Return to Normal Activity Call your doctor if you observe: Fever of 101 or Higher, Shortness of breath, Dizziness, Fainting spells, Swelling in the ankles, Chest pain, Increased palpitations (irregular heartbeat) Home Medications: Medications to take at Discharge Apixaban [Eliquis] 10 mg PO BID #90 tab 11/23/19 Bupropion HCl [Bupropion HCl Sr] 1 tab PO BID 12/28/19 Ibuprofen [Motrin] 600 mg PO Q8 #0 tab 12/30/19 Pantoprazole Sodium [Protonix] 40 mg PO DAILY #30 tab 12/30/19 Following Prescrptions Were Given to Patient: Pantoprazole Sodium [Protonix] 40 mg PO DAILY #30 tab Transmission Status: Received by [facility] Primary Care Physician: Katie Watson MD [Primary Care Provider] - Please follow up with your Primary Care Physician in: 3-5 days Disposition: Home Minutes spent on discharge:: 35 Patient Condition:: Stable Medical Necessity - Tobacco Use Smoking Status: Light Smoker (<10/day) Tobacco Use: Cigarettes Meaningful Use Info Meaningful Use Diagnoses (Choose all that apply): None applicable OBSV E&M: 77950 Observation care discharge
== END 2019-12-30 11:54 | disposition home or self-care (01) ==
LOC: ED 21:19 → PCU 12-29 00:02
PROVIDERS: Student in an Organized Health Care Education/Training Program; Admitting Provider Family Medicine; Emergency Provider Emergency Medicine; PCP Internal Medicine; Visit Provider Family Medicine
DX: I26.99 Other pulmonary embolism without acute cor pulmonale (principal); F17.210 Nicotine dependence, cigarettes, uncomplicated; B34.9 Viral infection, unspecified; I07.1 Rheumatic tricuspid insufficiency; Z86.711 Personal history of pulmonary embolism; Z79.01 Long term (current) use of anticoagulants; R94.31 Abnormal electrocardiogram [ECG] [EKG]
CPT/HCPCS: 36415; 71045; 71275; 80048; 83735; 84484; 85025; 85652; 86140; 87633; 93005; 93306; 93970; 96360; 96361; 99218; 99251; 99285; 99406; J7030; Q9967; A4216; G0378; G0463

== ENCOUNTER 2020-03-21 15:28 | Emergency (ER) | payer OTHER, SELFPAY ==
[2019-12-29 01:29] VITALS: BMI 25.5
[2020-03-21 15:29] VITALS: BP 146/66; PULSE 81; RESP 17; TEMP 36.2; O2SAT 100; BMI 26.8
--- NOTE | 2020-03-21 15:35 | RAD_ITS ---
STUDY: X-RAY - LEFT HAND REASON FOR EXAM: Female, 35 years old. SOFTBALL INJURY YESTERDAY, LEFT THUMB PAIN TECHNIQUE: 3 view(s) of the hand. COMPARISON: None. FINDINGS: No acute fracture, dislocation or osseous destruction. No significant joint space narrowing. No significant productive changes. No significant soft tissue swelling. IMPRESSION: Normal x-ray examination of the hand. Electronically Signed: Leonard Bhagat, at 16:10 EDT Tel , Service support , RAD/Hand Min 3 Views
--- NOTE | 2020-03-21 16:14 | ED.DCSUM_ITS ---
- ER Visit Summary Date of Service: 03/21/20 Chief Complaint: Left thumb injury History of Present Illness: The patient is a 35 F who presents with a left thumb injury that occurred last night. 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 Patient states the pain is worse with certain movements. Patient denies any paresthesias or weakness. Patient describes her pain as burning. Patient denies any other injuries. Physical Examination: Vital signs are stable. Patient is afebrile. Patient is in no acute distress. Musculoskeletal exam reveals tenderness over the MP joint of the left thumb. There is some mild edema and ecchymosis over the left thumb and thenar eminence. There is no bony crepitance or step-off. Range of motion was limited in all motions of the MP and IP joints of the left thumb secondary to pain. Sensation was intact light touch in all digits. Capillary refill was less than 2 seconds in all digits. Radial pulses are equal bilaterally. Test Results: X-rays of the left hand were obtained. There is no acute fracture. These were interpreted by the radiologist and myself. Emergency Department Course and Treatment: Patient was given a thumb spica splint. Patient was instructed to ice and elevate the left thumb. Patient was instructed to take Tylenol or ibuprofen as needed for pain. Patient was instructed to follow-up with her primary care physician in 5 to 7 days. Patient understood and was agreeable with the plan. All questions were answered. Disposition: Discharge home Impression: 1. Left thumb contusion This note was generated with [employer] dictation software. It may contain incorrect words, spelling, and punctuation that were not noted in review of the chart prior to signing ED Disposition - Plan for ED Patient: Disposition: Home or Assisted Living Diagnosis: Contusion of left thumb Instructions: ED EXTREMITY CONTUSION Upper Referrals: Katie Watson MD [Primary Care Provider] - 5-7 Days
== END 2020-03-21 16:40 | disposition home or self-care (01) ==
LOC: ED 16:27
PROVIDERS: Emergency Provider Emergency Medicine; PCP Internal Medicine
DX: S60.012A Contusion of left thumb without damage to nail, initial encounter (principal); W19.XXXA Unspecified fall, initial encounter; Y93.64 Activity, baseball; Y92.328 Other athletic field as the place of occurrence of the external cause; Y99.8 Other external cause status; F17.210 Nicotine dependence, cigarettes, uncomplicated; Z86.711 Personal history of pulmonary embolism
CPT/HCPCS: 73130; 99283